=== PATIENT | female | born 1980 | race African-American/Black ===

== ENCOUNTER 2023-09-19 06:53 | Inpatient (IN) | payer BC ==
[~2023-09-19] VITALS: Ht 180.3 cm; Wt 80.3 kg
[2023-09-19] MEDS ORDERED: ALBUTEROL (0.083%) 2.5MG/3ML NEB HHN STA (07:10)
[2023-09-19] MEDS ORDERED: IPRATROPIUM BROMIDE (0.02%) 0.5MG/2.5ML NEB HHN STA (07:10)
[2023-09-19] MEDS: MAGNESIUM 2 G PREMIX 50 ML IV STA (07:46)
[2023-09-19] MEDS: METHYLPREDNISOLONE SOD SUCC 125MG/2ML (ACT-O-VIAL) IV STA (07:46)
[2023-09-19 08:48] LABS: HEMATOCRIT. 36.1 % (36.0-48.0); HEMOGLOBIN. 11.8 g/dL (12.0-16.0); MEAN CORPUSCULAR HEMOGLOBIN 27.2 pg (28.0-32.0); MEAN CORPUSCULAR HGB CONC 32.8 g/dL (31.0-37.0); MEAN PLATELET VOLUME 7.5 fl (7.4-10.4); PLATELET 304 x1000/uL (130-400); RED BLOOD CELL COUNT 4.36 mill/uL (4.2-5.4); RED CELL DISTRIBUTION WIDTH 15.3 % (11.6-14.6); WHITE BLOOD COUNT 8.9 x1000/uL (4.5-11.0)
[2023-09-19 08:49] LABS: DIFFERENTIAL COMMENT 1
[2023-09-19] MEDS: METOCLOPRAMIDE HCL 10MG/2ML VIAL IV ONE (08:52)
[2023-09-19] MEDS: KETOROLAC 15MG/ML VIAL IV ONE (08:52)
[2023-09-19 09:00] LABS: CHLORIDE 111 mEq/L (98-107); POTASSIUM 3.8 mEq/L (3.5-5.1); SODIUM 140 mEq/L (136-145)
[2023-09-19 09:01] LABS: CARBON DIOXIDE 20 mEq/L (21-32); HCG SCREEN NEGATIVE
[2023-09-19 09:02] LABS: CALCIUM 9.6 mg/dL (8.7-10.4)
[2023-09-19 09:06] LABS: CREATININE 0.8 mg/dL (0.6-1.0); GLUCOSE 93 mg/dL (70-105); TROPONIN I HIGH SENSITIVITY 13 ng/L (3.0-34)
[2023-09-19 09:07] LABS: UREA NITROGEN BLOOD 6 mg/dL (9-23)
[2023-09-19 09:08] LABS: ALANINE AMINOTRANSFERASE 12 IU/L (10-49); ALBUMIN 4.4 g/dL (3.2-4.8); ASPARTATE AMINOTRANSFERASE 29 IU/L (<34)
[2023-09-19 09:09] LABS: BILIRUBIN TOTAL 0.3 mg/dL (0.1-1.0); PROTEIN TOTAL 7.5 g/dL (6.0-8.3)
[2023-09-19 09:30] LABS: PLATELET ESTIMATE NORMAL
[2023-09-19 10:19] VITALS: PULSE 98; RESP 26
[2023-09-19] MEDS: ALBUTEROL (0.083%) 2.5MG/3ML NEB HHN NR (10:19)
[2023-09-19] MEDS: IPRATROPIUM BROMIDE (0.02%) 0.5MG/2.5ML NEB HHN NR (10:20)
[2023-09-19 22:50] VITALS: BP 123/72; PULSE 91; RESP 20; TEMP 98.2
[2023-09-20] VITALS (9 sets, daily range): BP systolic 109–135; BP diastolic 63–82; PULSE 82–101; RESP 18–24; TEMP 97.4–97.9; O2SAT 97
[2023-09-20] MEDS ORDERED: FAMO20TA8 PO (02:55)
[2023-09-20] MEDS ORDERED: CETI10TA11 PO (02:55)
[2023-09-20] MEDS ORDERED: FERR-71 PO (02:55)
[2023-09-20] MEDS: CEFTRIAXONE 1GM/50ML 50 ML IV SCH (06:06)
[2023-09-20] MEDS: METHYLPREDNISOLONE SOD SUCC 125MG/2ML (ACT-O-VIAL) IV SCH (06:06)
[2023-09-20] MEDS: AZITHROMYCIN 500MG/250ML 250 ML IV SCH (08:28)
[2023-09-20] MEDS: PANTOPRAZOLE 40MG DR TABLET PO SCH (08:28)
[2023-09-20] MEDS: CETIRIZINE 10MG TABLET PO SCH (08:28)
[2023-09-20] MEDS: ENOXAPARIN 40MG/0.4ML SYR SUBCUT SCH (08:29)
[2023-09-20] MEDS: FLUTICASONE PROPIONATE 50MCG/SPRAY BOTTLE BOTHNSTRLS SCH (08:32)
[2023-09-20] MEDS: IPRATROPIUM/ALBUTEROL 0.5-3(2.5)MG/3ML NEB HHN PRN (08:43)
[2023-09-20] MEDS ORDERED: IOHEXOL-350 100 ML BOTTLE ONE (12:06)
[2023-09-20] MEDS: IPRATROPIUM/ALBUTEROL 0.5-3(2.5)MG/3ML NEB HHN SCH (12:09)
[2023-09-20] MEDS: ACETAMINOPHEN 325MG TABLET PO PRN (12:19)
[2023-09-20 14:28] LABS: *AMPHETAMINES SCREEN URINE NEGATIVE (NEGATIVE); *BARBITURATES SCREEN URINE NEGATIVE (NEGATIVE); *BENZODIAZEPINES SCREEN URINE NEGATIVE (NEGATIVE); *COCAINE SCREEN URINE NEGATIVE (NEGATIVE); CANNABINOID URINE SCREEN PRESUMPTIVE POSITIVE (NEGATIVE); ECSTASY MDMA SCREEN URINE NEGATIVE (NEGATIVE); METHADONE URINE SCREEN NEGATIVE (NEGATIVE); OPIATES URINE SCREEN NEGATIVE (NEGATIVE); PHENCYCLIDINE URINE SCREEN NEGATIVE (NEGATIVE)
[2023-09-20] MEDS: METHYLPREDNISOLONE SOD SUCC 40MG/ML (ACT-O-VIAL) IV SCH (14:36)
[2023-09-20 15:22] LABS: HEMOGLOBIN. 11.8 g/dL (12.0-16.0); MEAN CORPUSCULAR HEMOGLOBIN 27.9 pg (28.0-32.0); MEAN CORPUSCULAR HGB CONC 32.9 g/dL (31.0-37.0); MEAN CORPUSCULAR VOLUME 84.7 fL (81.0-99.0); MEAN PLATELET VOLUME 7.9 fl (7.4-10.4); PLATELET 370 x1000/uL (130-400); RED BLOOD CELL COUNT 4.25 mill/uL (4.2-5.4); RED CELL DISTRIBUTION WIDTH 15.6 % (11.6-14.6); WHITE BLOOD COUNT 11.3 x1000/uL (4.5-11.0)
[2023-09-20 15:27] LABS: DIFFERENTIAL COMMENT 1
[2023-09-20 15:28] LABS: CHLORIDE 109 mEq/L (98-107); SODIUM 137 mEq/L (136-145)
[2023-09-20 15:29] LABS: CALCIUM 9.7 mg/dL (8.7-10.4); CARBON DIOXIDE 19 mEq/L (21-32)
[2023-09-20 15:34] LABS: GLUCOSE 132 mg/dL (70-105); UREA NITROGEN BLOOD 8 mg/dL (9-23)
[2023-09-20 16:02] LABS: PLATELET ESTIMATE NORMAL
[2023-09-21] VITALS (11 sets, daily range): BP systolic 115–126; BP diastolic 54–79; PULSE 60–103; RESP 17–22; TEMP 96.6–98.6; O2SAT 96–100
[2023-09-21 16:32] LABS: HEMATOCRIT. 33.5 % (36.0-48.0); MEAN CORPUSCULAR HEMOGLOBIN 27.2 pg (28.0-32.0); MEAN CORPUSCULAR HGB CONC 32.8 g/dL (31.0-37.0); MEAN CORPUSCULAR VOLUME 83.1 fL (81.0-99.0); MEAN PLATELET VOLUME 8.3 fl (7.4-10.4); PLATELET 315 x1000/uL (130-400); RED BLOOD CELL COUNT 4.04 mill/uL (4.2-5.4); WHITE BLOOD COUNT 14.2 x1000/uL (4.5-11.0)
[2023-09-21 16:34] LABS: CHLORIDE 109 mEq/L (98-107); POTASSIUM 3.8 mEq/L (3.5-5.1); SODIUM 138 mEq/L (136-145)
[2023-09-21 16:35] LABS: CARBON DIOXIDE 20 mEq/L (21-32)
[2023-09-21 16:36] LABS: CALCIUM 9.7 mg/dL (8.7-10.4); DIFFERENTIAL COMMENT 1
[2023-09-21 16:40] LABS: CREATININE 0.9 mg/dL (0.6-1.0); GLUCOSE 142 mg/dL (70-105); UREA NITROGEN BLOOD 11 mg/dL (9-23)
[2023-09-21 16:42] LABS: ALANINE AMINOTRANSFERASE 12 IU/L (10-49); ALBUMIN 4.2 g/dL (3.2-4.8); ASPARTATE AMINOTRANSFERASE 15 IU/L (<34)
[2023-09-21 16:43] LABS: BILIRUBIN TOTAL 0.3 mg/dL (0.1-1.0); PROTEIN TOTAL 7.4 g/dL (6.0-8.3)
[2023-09-21 18:14] LABS: PLATELET ESTIMATE NORMAL
[2023-09-21 18:15] LABS: ANISOCYTOSIS 1+
[2023-09-22] VITALS (9 sets, daily range): BP systolic 104–126; BP diastolic 56–71; PULSE 72–118; RESP 16–20; TEMP 97.7–98.1; O2SAT 96–99
[2023-09-22] MEDS ORDERED: P20 MT (13:17)
[2023-09-22] MEDS ORDERED: LEVO-65 MT (13:17)
[2023-09-22] MEDS ORDERED: ALBU6.7H15 INH (13:17)
[2023-09-22] MEDS ORDERED: PRED5TAB MT (13:17)
[2023-09-22] MEDS ORDERED: PRED10TA MT (13:17)
[2023-09-22 16:06] LABS: CHLORIDE 105 mEq/L (98-107); POTASSIUM 3.8 mEq/L (3.5-5.1); SODIUM 136 mEq/L (136-145)
[2023-09-22 16:07] LABS: BASOPHILS % 0.1 % (0.0-2.0); CARBON DIOXIDE 19 mEq/L (21-32); HEMATOCRIT. 34.3 % (36.0-48.0); HEMOGLOBIN. 11.1 g/dL (12.0-16.0); LYMPHOCYTES % 8.6 % (20.0-50.0); MEAN CORPUSCULAR HEMOGLOBIN 27.4 pg (28.0-32.0); MEAN CORPUSCULAR HGB CONC 32.3 g/dL (31.0-37.0); MEAN CORPUSCULAR VOLUME 84.8 fL (81.0-99.0); MEAN PLATELET VOLUME 7.9 fl (7.4-10.4); MONOCYTES % 3.2 % (2.0-8.0); NEUTROPHILS % 88.1 % (40.0-76.0); PLATELET 335 x1000/uL (130-400); RED BLOOD CELL COUNT 4.04 mill/uL (4.2-5.4); RED CELL DISTRIBUTION WIDTH 15.8 % (11.6-14.6); WHITE BLOOD COUNT 11.7 x1000/uL (4.5-11.0)
[2023-09-22 16:08] LABS: CALCIUM 9.6 mg/dL (8.7-10.4)
[2023-09-22 16:13] LABS: CREATININE 0.9 mg/dL (0.6-1.0); GLUCOSE 143 mg/dL (70-105); UREA NITROGEN BLOOD 9 mg/dL (9-23)
== END 2023-09-22 18:14 | disposition home or self-care (01) | DRG 202 ==
LOC: ER 08:18 → EDBEDREQ 11:24 → 5WST 12:28 → EDBEDREQ 12:29 → 7WST 22:57
PROVIDERS: ADMIT Internal Medicine; ATTEND Internal Medicine
DX: J45.901 Unspecified asthma with (acute) exacerbation (principal); J18.9 Pneumonia, unspecified organism; J96.01 Acute respiratory failure with hypoxia; Z20.822 Contact with and (suspected) exposure to COVID-19; Z98.891 History of uterine scar from previous surgery; Z79.899 Other long term (current) drug therapy
CPT/HCPCS: 36415; 71045; 71275; 80048; 80053; 80305; 84484; 84703; 85025; 85379; 87426; 93005; 94640; 94644; 99285; J0456; J0696; J1650; J1885; J2765; J2920; J2930; J3475; Q9967